=== PATIENT | male | born 1945 | race Caucasian/White ===

== ENCOUNTER 2022-09-28 13:29 | Inpatient (IN) | payer MEDICARE ==
[2022-09-28 15:06] LABS: BASO % 0.8 % (0-2.0); EOS % 4.1 % (0-4.5); HEMOGLOBIN 11.5 GM/dL (11.7-16.9); LYMPH % 30.5 % (8-40); MCH 31.4 pg (25.7-33.7); MEAN CELL VOLUME 89.7 fl (80-96); MEAN PLT VOLUME 8.1 fl (7.5-11.1); NEUT % 56.6 % (42.8-82.8); PLATELET COUNT 212 10^3/uL (134-434); RBC 3.68 M/mm3 (4.00-5.60); RDW 13.9 % (11.9-15.9); WHITE BLOOD COUNT 6.5 K/mm3 (4.0-10.0)
[2022-09-28 15:17] LABS: EPI CELLS 2 /uL (0-25.1); HYALINE CASTS 0 /uL (0-3.1); PH,URINE 5.5 (5.0-8.0); URINE APPEARANCE CLEAR; URINE BACTERIA 28 /uL (0-1359); URINE BILIRUBIN NEGATIVE (NEGATIVE); URINE COLOR YELLOW; URINE GLUCOSE (UA) NEGATIVE (NEGATIVE); URINE KETONE NEGATIVE (NEGATIVE); URINE LEUK ESTERASE NEGATIVE (NEGATIVE); URINE NITRITE NEGATIVE (NEGATIVE); URINE PROTEIN NEGATIVE (NEGATIVE); URINE RBC 242 /uL (0-23.9); URINE UROBILINOGEN 0.2 mg/dL (0.2-1.0); URINE WBC 10 /uL (0-25.8)
[2022-09-28 15:18] LABS: INR 0.99 (0.83-1.09); PROTHROMBIN TIME (PATIENT) 11.5 SEC (9.7-13.0)
[2022-09-28 15:20] LABS: ACTIVATED PTT 27.7 SECONDS (25.2-36.5)
[2022-09-28 15:25] LABS: POTASSIUM 4.1 mmol/L (3.5-5.1)
[2022-09-28 15:27] LABS: ALBUMIN 3.7 g/dl (3.4-5.0); BLOOD UREA NITROGEN 30.7 mg/dL (7-18); CALCIUM 8.8 mg/dL (8.5-10.1)
[2022-09-28 15:30] LABS: CREATININE 1.6 mg/dL (0.55-1.3)
[2022-09-28 15:32] LABS: BILIRUBIN,TOTAL 0.5 mg/dL (0.2-1); TOT PROT 7.3 g/dl (6.4-8.2)
[2022-09-28] MEDS ORDERED: LACTATED RINGERS SOLUTION 1,000 ML/1,000 ML INFUS.BAG IV SCH (17:45)
[2022-09-28] MEDS ORDERED: CEFTRIAXONE 1 GM/50 ML BAG ONE (17:54)
[2022-09-28] MEDS: CEFTRIAXONE 1 GM in DEXTROSE 5%-WATER - 50 ML IVPB SCH (18:00)
[2022-09-29 08:01] LABS: BASO % 0.9 % (0-2.0); EOS % 4.9 % (0-4.5); HEMATOCRIT 31.5 % (35.4-49); HEMOGLOBIN 11.2 GM/dL (11.7-16.9); LYMPH % 36.4 % (8-40); MCH 31.7 pg (25.7-33.7); MCHC 35.6 g/dl (32.0-35.9); MEAN CELL VOLUME 89.1 fl (80-96); MEAN PLT VOLUME 8.3 fl (7.5-11.1); MONO % 9.7 % (3.8-10.2); NEUT % 48.1 % (42.8-82.8); PLATELET COUNT 188 10^3/uL (134-434); RBC 3.54 M/mm3 (4.00-5.60); RDW 13.9 % (11.9-15.9)
[2022-09-29] MEDS ORDERED: TAMSULOSIN HCL 0.4 MG CAP PO SCH (08:30)
[2022-09-29 08:31] LABS: CALCIUM 8.7 mg/dL (8.5-10.1)
[2022-09-29 08:32] LABS: BLOOD UREA NITROGEN 27.5 mg/dL (7-18)
[2022-09-29 08:35] LABS: CREATININE 1.6 mg/dL (0.55-1.3)
[2022-09-29] MEDS ORDERED: PATIENT'S OWN MEDICATION (NON-FORMULARY) (Enzalutamide [Xtandi] 40 MG Capsule) PO SCH (10:00)
[2022-09-29] MEDS ORDERED: TAMSULOSIN HCL 0.4 MG CAP ONE (10:29)
[2022-09-29] MEDS ORDERED: CEFTRIAXONE 1 GM/50 ML BAG ONE (10:36)
[2022-09-29] MEDS: CEFTRIAXONE 1 GM in DEXTROSE 5%-WATER - 50 ML IVPB SCH (10:54)
[2022-09-29 16:29] VITALS: BMI 24.5
[2022-09-29] MEDS ORDERED: ONDANSETRON 4 MG/2 ML VIAL IVPUSH PRN (17:49)
[2022-09-29] MEDS ORDERED: PROPOFOL 20 ML ONE (17:52)
[2022-09-29] MEDS ORDERED: LACTATED RINGERS SOLUTION 1,000 ML IV SCH (18:00)
[2022-09-29] MEDS ORDERED: GENTAMICIN 80MG PREMIX BAG IVPB ONE (18:20)
[2022-09-29] MEDS ORDERED: ceFAZolin SODIUM 1 GM VIAL IVPB ONE (18:20)
[2022-09-30 06:47] VITALS: RESP 18
[2022-09-30] MEDS: TAMSULOSIN HCL 0.4 MG CAP PO SCH (09:17)
[2022-09-30] MEDS: CEFTRIAXONE 1 GM in DEXTROSE 5%-WATER - 50 ML IVPB SCH (09:19)
[2022-09-30] MEDS ORDERED: ACETAMINOPHEN 1000 MG/100 ML BAG IVPB ONE (21:04)
[2022-10-01] MEDS: CEFTRIAXONE 1 GM in DEXTROSE 5%-WATER - 50 ML IVPB SCH (10:07)
[2022-10-01] MEDS: TAMSULOSIN HCL 0.4 MG CAP PO SCH (10:08)
[2022-10-01 12:18] LABS: HEMATOCRIT 32.3 % (35.4-49); HEMOGLOBIN 11.2 GM/dL (11.7-16.9); MCH 31.4 pg (25.7-33.7); MCHC 34.6 g/dl (32.0-35.9); MEAN CELL VOLUME 90.8 fl (80-96); MEAN PLT VOLUME 8.8 fl (7.5-11.1); PLATELET COUNT 221 10^3/uL (134-434); RBC 3.56 M/mm3 (4.00-5.60); RDW 14.1 % (11.9-15.9); WHITE BLOOD COUNT 6.1 K/mm3 (4.0-10.0)
[2022-10-01 13:57] LABS: POTASSIUM 3.7 mmol/L (3.5-5.1)
[2022-10-01 14:20] VITALS: BP 144/87; PULSE 56; TEMP 97.7
[2022-10-01 14:33] LABS: BLOOD UREA NITROGEN 23.1 mg/dL (7-18); CALCIUM 8.9 mg/dL (8.5-10.1)
[2022-10-01 14:37] LABS: CREATININE 1.5 mg/dL (0.55-1.3)
[2022-10-01] MEDS: PATIENT'S OWN MEDICATION (NON-FORMULARY) (Enzalutamide [Xtandi] 40 MG Capsule) PO SCH ×2 (14:54→15:05)
== END 2022-10-01 14:34 | disposition home or self-care (01) | DRG 723 ==
LOC: JER 13:29 → JERBED 14:23 → UNDOADMOB 14:23 → JERBED 09-29 15:25 → J8W 09-29 15:25 → JASUSAT 09-29 16:04 → J8W 09-29 16:38 → JASUSAT 09-30 12:11 → J8W 09-30 12:12
PROVIDERS: ADMIT Family Medicine; ATTEND Family Medicine
PROC: 0TJ98ZZ Inspection of Ureter, Via Natural or Artificial Opening Endoscopic (ICD-10-PCS; 2022-09-29)
PROC: 0TJB8ZZ Inspection of Bladder, Via Natural or Artificial Opening Endoscopic (ICD-10-PCS; 2022-09-29)
PROC: 0T7D8ZZ Dilation of Urethra, Via Natural or Artificial Opening Endoscopic (ICD-10-PCS; principal; 2022-09-29 15:00)
DX: C61 Malignant neoplasm of prostate (principal); N13.2 Hydronephrosis with renal and ureteral calculous obstruction; N17.9 Acute kidney failure, unspecified; R31.9 Hematuria, unspecified; N40.0 Benign prostatic hyperplasia without lower urinary tract symptoms; R82.81 Pyuria; N18.9 Chronic kidney disease, unspecified
CPT/HCPCS: 36415; 71045-TC-FY; 76000-TC-FY; 80048; 80053; 81003; 85025; 85027; 85610; 85730; 86850; 86900; 86901; 87086; 93005; 93010; 94760; 99285-25; C1758

== ENCOUNTER 2022-12-09 05:28 | Day surgery (SDC) | payer MEDICARE ==
[2022-12-08 15:56] VITALS: BMI 25.5
[2022-12-09 08:13] LABS: BASO % 0.8 % (0-2.0); EOS % 1.3 % (0-4.5); HEMATOCRIT 34.6 % (35.4-49); HEMOGLOBIN 11.9 GM/dL (11.7-16.9); LYMPH % 36.6 % (8-40); MCH 33.9 pg (25.7-33.7); MCHC 34.4 g/dl (32.0-35.9); MEAN CELL VOLUME 98.7 fl (80-96); MEAN PLT VOLUME 7.8 fl (7.5-11.1); MONO % 9.9 % (3.8-10.2); NEUT % 51.4 % (42.8-82.8); PLATELET COUNT 256 10^3/uL (134-434); RBC 3.51 M/mm3 (4.00-5.60); RDW 14.3 % (11.9-15.9); WHITE BLOOD COUNT 6.8 K/mm3 (4.0-10.0)
[2022-12-09 08:18] LABS: INR 0.97 (0.83-1.09); PROTHROMBIN TIME (PATIENT) 11.3 SEC (9.7-13.0)
[2022-12-09] MEDS ORDERED: SODIUM CHLORIDE 500 ML IV SCH (10:40)
[2022-12-09] MEDS ORDERED: MIDAZOLAM HCL 2 MG/2 ML SINGLE DOSE VIAL IVPUSH ONE (10:40)
[2022-12-09] MEDS ORDERED: CEFTRIAXONE 2 GM in DEXTROSE 5%-WATER 100 ML IVPB ONE (10:40)
[2022-12-09] MEDS ORDERED: FENTANYL CITRATE/PF 50 MCG/ML VIAL IVPUSH ONE ×3 (10:40→12:15)
[2022-12-09 12:12] VITALS: RESP 18
[2022-12-09] MEDS ORDERED: ACETAMINOPHEN 1000 MG/100 ML BAG IVPB PRN (13:06)
[2022-12-09] MEDS ORDERED: ACETAMINOPHEN INJECTION 100 ML IVPB ONE (13:36)
[2022-12-09] MEDS ORDERED: ACETAMINOPHEN 1000 MG/100 ML BAG IVPB ONE (13:40)
[2022-12-09 15:07] VITALS: TEMP 97.5
[2022-12-09 15:09] VITALS: BP 129/78; PULSE 69
== END 2022-12-09 15:15 | disposition home or self-care (01) ==
LOC: JRADIR 05:28
PROVIDERS: ATTEND Urology
PROC: 0T9 Urinary System, Drainage (ICD-10-PCS; principal; 2022-12-09)
PROC: 0T9130Z Drainage of Left Kidney with Drainage Device, Percutaneous Approach (ICD-10-PCS; 2022-12-09)
PROC: 0T9030Z Drainage of Right Kidney with Drainage Device, Percutaneous Approach (ICD-10-PCS; 2022-12-09)
DX: C61 Malignant neoplasm of prostate (principal); N13.5 Crossing vessel and stricture of ureter without hydronephrosis
CPT/HCPCS: 36415; 50432; 85025; 85610

== ENCOUNTER → 2024-07-18 | Day surgery (SDC) | payer MEDICARE, OTHER | END | disposition home or self-care (01) | LOC: JRADIR 11:50 | PROVIDERS: ATTEND Urology | PROC: 0T25X0Z Change Drainage Device in Kidney, External Approach (ICD-10-PCS; principal; 2024-07-18) | DX: N13.9 Obstructive and reflux uropathy, unspecified (principal); Z85.46 Personal history of malignant neoplasm of prostate | CPT/HCPCS: 50435 ==